=== PATIENT | female | born 1955 | race Caucasian/White ===

== ENCOUNTER 2022-05-04 22:45 | Emergency (ER) | payer OTHER ==
[~2022-05-04] VITALS: Ht 170.2 cm; Wt 72.6 kg
[~2022-05-04 22:45] MED LIST: AMLO10TA PO; CARV6.25 PO
[2022-05-04 22:50] VITALS: BP 134/75
--- NOTE | 2022-05-04 22:50 | NUR ---
PT [facility] ALS ER BED 11
--- NOTE | 2022-05-04 23:00 | NUR ---
ERMD AT BEDSIDE
[2022-05-04 23:37] LABS: BASOPHILS # (AUTO) 0.1 K/uL (0.00-0.22); BASOPHILS % (AUTO) 0.7 % (0.0-2.0); EOSINOPHILS # (AUTO) 0.1 K/uL (0-0.4); EOSINOPHILS % (AUTO) 1.3 % (0.0-4.0); HEMOGLOBIN 12.7 g/dL (12.0-16.0); LYMPHOCYTES # (AUTO) 1.7 K/uL (2.5-16.5); LYMPHOCYTES % (AUTO) 18.2 % (20.5-51.1); MEAN CORPUSCULAR HEMOGLOBIN 31 pg (27-31); MEAN CORPUSCULAR HGB CONC 33 g/dL (33-37); MEAN CORPUSCULAR VOLUME 92.3 fL (80-94); MONOCYTES # (AUTO) 0.9 K/uL (0.8-1.0); MONOCYTES % (AUTO) 10.3 % (1.7-9.3); NEUTROPHILS # (AUTO) 6.4 K/uL (1.8-7.7); NEUTROPHILS % (AUTO) 69.5 % (42.2-75.2); PLATELET COUNT (AUTO) 304 K/uL (140-450); RED BLOOD CELL COUNT(AUTO) 4.11 MIL/uL (4.20-5.40); RED CELL DISTRIBUTION WIDTH 13.9 % (11.6-13.7); WHITE BLOOD COUNT (AUTO) 9.2 K/uL (4.8-10.8)
--- NOTE | 2022-05-04 23:40 | NUR ---
SPOKE TO [employer]ISON [employer]PERATOR [place]. THEY REC. OBSERVATION 4-6HOURS NEEDED FOR DROWSINESS. STATED THAT IF ANY LABS COME BACK ABNNORMAL TO CALL BACK FOR FURTHER REC.. AMADO BONNER AWARE.
[2022-05-04 23:50] LABS: APPEARANCE,URINE CLEAR (CLEAR); BILIRUBIN,URINE NEGATIVE (NEGATIVE); BLOOD, URINE TRACE-I (NEGATIVE); COLOR,URINE YELLOW (YELLOW); LEUKOCYTE ESTERASE ,URINE TRACE (NEGATIVE); NITRITE, URINE POSITIVE (NEGATIVE); PH,URINE 6.5 (5.0-9.0); UGLUCOSE NEGATIVE (NEGATIVE)
[2022-05-05 00:06] LABS: RBC,URINE 0-5 /HPF (0-5)
[2022-05-05 00:13] LABS: ALBUMIN 3.3 g/dL (3.4-5.0); ANION GAP 14.9 (8-16); ASPARTATE AMINOTRANSFERASE 23 U/L (15-37); CARBON DIOXIDE 30.2 mmol/L (21-32); CHLORIDE 103 mmol/L (98-107); CREATININE 0.9 mg/dL (0.6-1.3); GFR ARICAN-AMERICAN 80 mL/min (>90); GLUCOSE 126 mg/dL (74-106); POTASSIUM 4.1 mmol/L (3.5-5.1); SODIUM SERUM 144 mmol/L (136-145); TOTAL BILIRUBIN 0.3 mg/dL (0.0-1.0); UREA NITROGEN, BLOOD 21 mg/dL (7-18)
[2022-05-05 00:17] LABS: SALICYLATE < 2.8 mg/dL (2.8-20.0)
[2022-05-05 00:18] LABS: ACETAMINOPHEN < 0.5 ug/ml (10-30)
--- NOTE | 2022-05-05 05:05 | NUR ---
SPOKE TO TAMIKO -, UPDATED ON PATIENTS STATUS. STATED THAT HE WOULD LIKE TO BE NOTIFIED WHEN PATIENT GETS DISCHARGED.
--- NOTE | 2022-05-05 07:13 | NUR ---
REPORT GIVEN TO PATEL DIAZ. TRANSFER OF CARE.
--- NOTE | 2022-05-05 07:29 | NUR ---
PATIENT CALLED AND STATED THAT THEY ARE ON THEIR WAY TO SUR[employer]Y WORKER.
[2022-05-05 08:04] VITALS: BP 130/70
--- NOTE | 2022-05-05 08:08 | NUR ---
Patient discharged with v/s stable. Written and verbal after care instructions given and explained. Patient verbalized understanding. Wheel Chair Assisted with to car. All questions addressed prior to discharge. Advised to follow up with PMD.
== END 2022-05-05 08:08 | disposition home or self-care (01) ==
LOC: MED 22:45
DX: I10 Essential (primary) hypertension (principal); T42.6X1A Poisoning by other antiepileptic and sedative-hypnotic drugs, accidental (unintentional), initial encounter; G47.00 Insomnia, unspecified; Z79.899 Other long term (current) drug therapy; Y92.89 Other specified places as the place of occurrence of the external cause
CPT/HCPCS: 36415; 80053; 81001; 85025; 87086; 93005; 99284; G0480; G0482